=== PATIENT | female | born 1980 | race Caucasian/White ===

== ENCOUNTER → 2021-06-09 11:14 | Outpatient (CLI) | payer OTHER, SELFPAY ==
--- NOTE | ~2021-06-09 | MR_ITS ---
EXAMINATION: MR hip RT wo con DATE: 06/09/2021 12:37 INDICATION: Right hip pain TECHNIQUE: Magnetic resonance imaging (MRI) of the right hip was performed without intravenous contr ast. Sequences included full-field axial PD-weighted FS FSE and T1-weighted FSE, coronal of the pelvi s with PD-weighted FS FSE, T1-weighted FSE and T2-weighted FS FSE, small field of view of the right hip with axial PD-weighted FS FSE, sagittal PD-weighted FS FSE, coronal T2-weighted FSE and coronal P D weighted FS FSE. Additional radial T1-weighted FGR oriented orthogonal to the acetabular rim were o btained for evaluation of the labrum. COMPARISON: None FINDINGS: Bones/labrum/cartilage: Alignment is normal. No fracture, avascular necrosis or pathologic marrow replacing process. Right a cetabular labral tear with large intrasubstance ganglion cyst which expands the labrum extending from the 1:00 position anteriorly to the 10:00 position posteriorly. Articular cartilage is normal. Fluid: Symmetric physiologic amount of fluid within both hip joints. Soft tissues: Normal and symmetric muscle bulk and signal in the pelvis and visualized proximal thighs. The iliopso as, gluteal and proximal hamstring tendons are normal. Tampon within the vaginal vault. Limited evalu ation of visceral organs of the pelvis is unremarkable. No pathologically enlarged pelvic/inguinal l ymphadenopathy. IMPRESSION: 1. Tear of the right acetabular labrum with large intrasubstance ganglion cyst extending posteriorly from the 1:00 to the 10:00 position. Reviewed, dictated and finalized at location A.
--- NOTE | ~2021-06-09 | US_ITS ---
EXAMINATION: US soft tissue abdomen DATE: 06/09/2021 11:47 INDICATION: Left upper quadrant abdominal pain. Evaluate for hernia. TECHNIQUE: Multiple grayscale and Doppler ultrasound images of the abdominal wall and underlying gabriela ls in the region of pain at the left upper quadrant of the abdomen were obtained. COMPARISON: None FINDINGS: Peristalsing and shadowing bowel is seen deep to the site of maximal pain. The underlying abdominal w all appears intact with no evident ventral hernia. No abnormal masses or fluid collections identified . IMPRESSION: 1. No ventral hernia at the left retrocardiac region of concern. Reviewed, dictated and finalized at location A.
--- NOTE | ~2021-06-09 | US_ITS ---
EXAMINATION: US thyroid EXAM DATE: 06/09/2021 11:47 INDICATION: Disorder of thyroid. TECHNIQUE: Multiple grayscale and Doppler images of the thyroid were obtained (by a technologist who performed the scan) and subsequently reviewed. Individual nodules and recommendations may be reporte d in accordance with TI-RADS system as designated by the 2017 ACR White Paper TI-RADS committee. The re is no prior study for comparison. FINDINGS: Right there are lobe measures 5.0 x 1.1 x 1.3 cm, the left measuring 4.7 x 1.0 x 1.4 cm. Homogeneous thyroid echogenicity. No focal nodules identified. IMPRESSION: Unremarkable thyroid ultrasound exam. Reviewed, dictated and finalized at location A.
== END ==
PROVIDERS: PCP Emergency Medicine; Visit Provider Emergency Medicine
DX: E07.9 Disorder of thyroid, unspecified (principal); M62.08 Separation of muscle (nontraumatic), other site; M25.551 Pain in right hip; S73.101A Unspecified sprain of right hip, initial encounter; M67.451 Ganglion, right hip
CPT/HCPCS: 73721; 76536; 76705

== ENCOUNTER 2021-11-29 10:03 | Emergency (ER) | payer OTHER, SELFPAY ==
[2021-11-29 10:41] VITALS: BP 136/92; PULSE 75; RESP 16; TEMP 37.5; O2SAT 100
--- NOTE | 2021-11-29 11:18 | ED.URI ---
HPI - URI/Sore Throat General Chief Complaint: Upper Respiratory Infection Stated Complaint: Sinus,Bilateral Ear Irritation Time Seen by Provider: 11/29/21 11:05 Source: patient and RN notes reviewed Mode of arrival: ambulatory Limitations: no limitations History of Present Illness HPI Narrative: Patient presents today complaining of a 12-day history of sinus pressure, headache, chest congestion in the mornings, bilateral ear pressure. She took Mucinex for the first 5 days and has been taking Sudafed and ibuprofen for the remainder with mild relief. She was initially seen at a different urgent care who told her she had a viral sinus infection. MD elicited complaint: nasal congestion and sinus pain Related Data Allergies Allergy/AdvReac Type Severity Reaction Status Date / Time Penicillins Allergy Anaphylaxis Verified 11/29/21 10:44 Review of Systems Review of Systems: CONSTITUTIONAL: Denies body aches, fever, chills, or sweats. EYES: Denies visual changes, redness, or discharge. ENT: Denies rhinorrhea, sore throat, or otalgia.+ Congestion, sinus pressure, ear pressure CARDIOVASCULAR: Denies chest pain, palpitations, or edema. RESPIRATORY: Denies cough or dyspnea. GASTROINTESTINAL: Denies abdominal pain, nausea, vomiting, or diarrhea. GENITOURINARY: Denies dysuria or hematuria. SKIN: Denies rash, itching, or wounds. MUSCULOSKELETAL: Denies back pain, joint pain, or myalgia. NEUROLOGIC: Denies numbness, tingling, or weakness.+ Headache PSYCH: Denies depression or anxiety. PMFSH Comments At time of signature, I have reviewed and agree with nursing past medical, surgical, social and family history unless otherwise noted. Please see nursing chart for further information. There is no relevant family history pertinent to the presenting complaint Exam Narrative: GENERAL: Well-appearing, well-nourished, and in no acute distress. HEAD: Normocephalic, atraumatic. EYES: EOMI. No redness or drainage. Conjunctivae normal. ENT: Mucous membranes pink and moist. Nares congested. No rhinorrhea. TMs normal bilaterally. Throat normal. Uvula midline. Frontal and bilateral maxillary sinus tenderness, left greater than right NECK: Normal AROM. Supple. No lymphadenopathy. CHEST: No respiratory distress. Clear to auscultation. HEART: Regular rate and rhythm. No murmur appreciated. Normal peripheral pulses. EXTREMITIES: Normal range of motion. No edema. SKIN: Warm, dry, no rash. Capillary refill normal. Normal skin turgor. NEURO: No focal deficits. Alert and oriented x3. Gait steady. PSYCH: Normal affect. No signs of depression or anxiety. Course Course Level of Care: Express Care Visit Vital Signs Vital signs: Vital Signs Temperature 99.5 F 11/29/21 10:41 Pulse Rate 75 11/29/21 10:41 Respiratory Rate 16 11/29/21 10:41 Blood Pressure 136/92 H 11/29/21 10:41 Pulse Oximetry 100 11/29/21 10:41 Temperature 99.5 F 11/29/21 10:41 Pulse Rate 75 11/29/21 10:41 Respiratory Rate 16 11/29/21 10:41 Blood Pressure 136/92 H 11/29/21 10:41 Pulse Oximetry 100 11/29/21 10:41 Reviewed. Pt has been instructed to follow up with her PCP regarding her elevated blood pressure today. MDM - URI/Sore Throat Differential Diagnosis Differential diagnosis: Likely upper respiratory infection, sinusitis and viral infection Critical Care Time Critical Care Time Critical Care Time: No Discharge Plan Discharge Clinical Impression: Sinusitis Qualifiers: Sinusitis location: unspecified location Chronicity: acute Recurrence: non-recurrent Qualified Code(s): J01.90 - Acute sinusitis, unspecified Patient Disposition: Home, Self-Care Condition: Stable Instructions: Antibiotic Form, Sinusitis (ED) Additional Instructions: Please take the doxycycline as prescribed until gone. Continue Sudafed and Flonase for your symptoms. Follow-up with your doctor with any concerns. Your blood pressure was elevated above 120
== END 2021-11-29 11:25 | disposition home or self-care (01) ==
PROVIDERS: Emergency Provider Nurse Practitioner; PCP Emergency Medicine
DX: J01.90 Acute sinusitis, unspecified (principal)
CPT/HCPCS: 99213; G0463

== ENCOUNTER → 2021-12-06 02:46 | Outpatient (CLI) | payer OTHER, SELFPAY ==
[2021-12-06 21:18] LABS: SARS-CoV-2 RNA PCR Negative
== END ==
PROVIDERS: PCP Emergency Medicine; Visit Provider Emergency Medicine
DX: Z20.822 Contact with and (suspected) exposure to COVID-19 (principal)
CPT/HCPCS: C9803; U0003; U0005

== ENCOUNTER 2022-06-28 18:32 | Emergency (ER) | payer OTHER, SELFPAY ==
[2022-06-28 18:50] VITALS: BP 146/95; PULSE 80; RESP 14; TEMP 36.6; O2SAT 100
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
[2022-06-28 19:27] VITALS: BP 108/76; PULSE 80; RESP 18; O2SAT 99
== END 2022-06-28 19:28 | disposition home or self-care (01) ==
PROVIDERS: Emergency Provider Emergency Medicine; PCP Emergency Medicine
DX: Z04.1 Encounter for examination and observation following transport accident (principal)
CPT/HCPCS: 99282

== ENCOUNTER 2022-06-28 19:30 | Observation (INO) | payer OTHER, SELFPAY ==
[2022-06-28 19:45] VITALS: BP 118/61; PULSE 72
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
== END 2022-06-28 20:45 | disposition hospice, home (50) ==
PROVIDERS: Admitting Provider Obstetrics & Gynecology; PCP Emergency Medicine; Visit Provider Obstetrics & Gynecology
DX: Z04.1 Encounter for examination and observation following transport accident (principal)
CPT/HCPCS: G0378; G0379

== ENCOUNTER 2025-04-08 12:29 | Outpatient (CLI) | payer OTHER, SELFPAY ==
--- NOTE | ~2025-04-08 | MR_ITS ---
EXAMINATION: MR hip RT w con DATE: 04/08/2025 14:23 INDICATION: Right hip pain TECHNIQUE: Magnetic resonance (MR) arthrogram of the right hip was performed following intra-articula r gadolinium contrast injection and without intravenous contrast. Details of the hip joint injection have been dictated separately. Sequences included small field of view of the right hip with axial and sagittal T1-weighted FS SE and T2-weighted FS FSE and coronal T1-weighted SE and T2-weighted FS FSE . Additional T1-weighted FGRE images in a radial pattern oriented orthogonal to the acetabular rim we re obtained for evaluation of the labrum. COMPARISON: None. FINDINGS: Bones/labrum/cartilage: Alignment is normal. Low signal intensity bone island at the posterior right supra-acetabular region. Bone marrow signal is otherwise unremarkable with no fracture, avascular necrosis or pathologic radha ow replacing process. Contrast extends into pterygoid the superolateral right acetabular labrum which extends 1.6 cm AP and which begins at the chondral labral junction extending peripherally into the l abrum. Articular cartilage is otherwise normal. Fluid: Physiologic amount fluid at the left hip. No bursitis or other abnormal fluid collections. Soft tissues: Normal and symmetric muscle bulk and signal in the pelvis and visualized proximal thighs. The bilater al iliopsoas, gluteal and proximal hamstring tendons are normal. The signal intensity tampon within t he vaginal vault. Limited evaluation of visceral organs of the pelvis is unremarkable. No pathologic ally enlarged pelvic/inguinal lymphadenopathy. IMPRESSION: 1. Tear of the superolateral right acetabular labrum. Reviewed, dictated and finalized at location A.
--- NOTE | ~2025-04-08 | XR_ITS ---
EXAMINATION: XR fl inj hip RT for MR/CT DATE: 04/08/2025 13:32 INDICATION: Right hip pain TECHNIQUE: A time-out was performed to verify the patient's name, date of , and procedure to b e performed. The procedure including the risks, benefits, and alternatives was discussed with the pat ient. Risks discussed included bleeding and infection. The patient understood the risks and agreed to proceed. The skin overlying the right hip joint was prepped and draped in usual sterile fashion. A nesthetic was administered with 1% lidocaine subcutaneously. A 22 G needle was advanced under fluoro scopic guidance into the joint. Injection of 1 mL of Omnipaque 240 confirmed intra-articular positio n of the needle. Subsequently, injectate consisting of 12 mL of 2:1:1 mixture of sterile saline:Omni paque 240:1% lidocaine mixed 200:1 with 529 mg/mL Multihance gadolinium contrast was instilled with intra-articular administration confirmed with intermittent fluoroscopy. The needle was removed and th e entry site was cleaned and dressed. There were no immediate complications. Fluoroscopy exposure ti me was 0.1 minutes. The total number of images was 7. Total DAP was 0.526 mGycm^2. FINDINGS: Real-time fluoroscopy demonstrates the needle and injected contrast in the right hip joint. IMPRESSION: 1. Successful right hip joint injection of dilute gadolinium contrast mixture for subsequent MRI arth rogram which will be dictated separately. Reviewed, dictated and finalized at location A. IMPRESSION: 1. Successful right hip joint injection of dilute gadolinium contrast mixture f or subsequent MRI arthrogram which will be dictated separately.
--- OUTSIDE RECORDS SUMMARY | 2025-04-08 12:36 | XMS_ITS | Clinical Summary ---
Author Organization [facility] Care Team Providers Care Automation Control Integrator Name Role Phone Josh Sierra MD Primary Care Provider [phone] Allergies Active Allergy Reactions Criticality Noted Date Comments Penicillins Unknown,Anaphylaxis, Swel ling High 07/05/2014 Other reaction(s): Unknown Medications etonogestreL-et hinyl estradioL (NUVARING, ELURYNG) 0.12-0.015 mg/24 hr vaginal ring INSERT 1 RING VAGINALLY FOR 3 WEEKS THEN REMOVE FOR 1 WEEK Active Active Problems Problem Noted Date Diagnosed Date Normal labor 12/16/2018 Surgical History Surgery Date Site/Laterality Comments FLUORO GUIDED INJECTION HIP RIGHT 08/30/2021 Right Family History Medical History Relation Name Comments Arthritis Other Diabetes Other Heart disease Other Hypertension Other Relation Name Status Comments Other Social History Tobacco Use Types Packs/Day Years Used Date Smoking Tobacco: Never Smokeless Tobacco: Never Alcohol Use Standard Drinks/Week Comments Yes 0 (1 standard drink = 0.6 oz pur e alcohol) Personal Safety Answer Date Recorded Getting School Help Needed Not on file 01/25 Comments Unknown Sex and Gender Information Value Date Recorded Sex Assigned at Not on file Legal Sex Female 6:46 AM FULFILLMENT SPECIALIST Gender Identity Not on file Sexual Orientation Not on file 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 file Not on file Obstetrics History Last Filed Vital Signs Vital Sign Reading Time Taken Comments Blood Pressure 140/85 11/10/2021 11:56 AM FULFILLMENT SPECIALIST Pulse 96 11/10/2021 11:56 AM FULFILLMENT SPECIALIST Temperature 36.8 C (98.3 F) 12/07/2020 8:34 AM FULFILLMENT SPECIALIST Respiratory Rate - - Oxygen Saturation - - Inhaled Oxygen Concentration - - Weight 83.5 kg (184 lb) 11/10/2021 11:56 AM FULFILLMENT SPECIALIST Height 162.6 cm (5' 4 ) 11/10/2021 11:56 AM FULFILLMENT SPECIALIST Body Mass Index 31.58 11/10/2021 11:56 AM FULFILLMENT SPECIALIST Plan of Treatment Not on file Insurance [facility] CLAIMS Care Teams Automation Control Integrator Relationship Specialty Start Date End Date Josh Sierra MD [address] [place] [address] PCP - General Family Medicine 11/10/20
--- OUTSIDE RECORDS SUMMARY | 2025-04-08 12:36 | XMS_ITS | Clinical Summary ---
Author Organization [facility] Address [address] [place] [address] Care Team Providers Care Remote Sensing Analyst Name Role Phone Unavailable Primary Care Provider Unavailabl e Source Comments [facility],non-owned Affiliates and Associated Physician Practices is amultiple site organization consisting of ambulatory clinics and hospital sitesin [place], [place], [place]. This disclosure is being madepursuant to the Care Everywhere program and may not contain all information available regarding this patient. Last updated 18.[facility] Allergies Active Allergy Reactions Criticality Noted Date Comments Penicillins Anaphylaxis High 10/23/2018 Medications * Be aware that medications may not be up to date on this document. Alwaysverify current medications with the patient. No known medications Immunizations Immunization Administration Dates Next Due TDAP (7yrs+) 10/23/2018 Social History Tobacco Use Types Packs/Day Years Used Date Smoking Tobacco: Never Assessed Comments Unknown Sex and Gender Information Value Date Recorded Sex Assigned at Not on file Legal Sex Female 2:06 PM CHANNEL MAN Gender Identity Not on file Sexual Orientation Not on file Plan of Treatment Health Maintenance Due Date Last Done Comments LIPID TESTING 1982 MAMMOGRAM 1982 HIV SCREENING 1997 HEPATITIS C SCREENING 07/28/2000 HEPATITIS B VACCINE (1 of 3 - 19+ 3-dose series) 2001 COVID-19 VACCINE ( - 2023-2 5 season) 2024 DEPRESSION SCREENING 11/25/2024 INFLUENZA VACCINE (Season Ended) 2025 DTAP/TDAP/TD VACCINES (2 - T d or Tdap) 10/23/2028 10/23/2018 ZOSTER VACCINE (1 of 2) 2032 HIB VACCINE Aged Out No longer eligi ble based on patient's age to complete this topic HPV VACCINE Aged Out No longer eligi ble based on patient's age to complete this topic MENINGOCOCCAL (Group B) VACC INE SHARED DECISION-MAKING Aged Out No longer eligibl e based on patient's age to complete this topic MENINGOCOCCAL GROUPS A/C/Y/W VACCINE Aged Out No longer eligible b ased on patient's age to complete this topic PNEUMOCOCCAL VACCINE Aged Out No long er eligible based on patient's age to complete this topic Insurance [facility]
--- OUTSIDE RECORDS SUMMARY | 2025-04-08 12:36 | XMS_ITS | Encounter Summary ---
Author Organization [facility] Address [address] [place] [id number] Care Team Providers Care Ground Host/Hostess Name Role Phone Josh Sierra MD Primary Care Provider [phone] Encounter Details Date Type Department Care Team (Late st Contact Info) Description 08/29/2021 Telephone [facility] [address] [place] [id number] Grace Miguel, RT Social History Tobacco Use Types Packs/Day Years Used Date Smoking Tobacco: Never Smokeless Tobacco: Never Alcohol Use Standard Drinks/Week Comments Yes 0 (1 standard drink = 0.6 oz pur e alcohol) Comments Unknown Sex and Gender Information Value Date Recorded Sex Assigned at Not on file Legal Sex Female 6:46 AM SNOWSPORT INSTRUCTOR Gender Identity Not on file Sexual Orientation Not on file 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
--- OUTSIDE RECORDS SUMMARY | 2025-04-08 12:36 | XMS_ITS | Referral Summary ---
Author Organization [facility] Care Team Providers Care Specialty Molder Name Role Phone Josh Sierra MD Primary Care Provider [phone] Allergies Active Allergy Reactions Criticality Noted Date Comments Penicillins Unknown,Anaphylaxis, Swel ling High 07/05/2014 Other reaction(s): Unknown Medications etonogestreL-et hinyl estradioL (NUVARGENE, GATITOURYMARBELLA) 0.12-0.015 mg/24 hr vaginal ring INSERT 1 RING VAGINALLY FOR 3 WEEKS THEN REMOVE FOR 1 WEEK Active Active Problems Problem Noted Date Diagnosed Date Normal labor 12/16/2018 Social History Tobacco Use Types Packs/Day Years [...] on file Legal Sex Female 6:46 AM FORESTRY CREW CHIEF Gender Identity Not on file Sexual Orientation Not on file 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 file Not on file Last Filed Vital Signs Vital Sign Reading Time Taken Comments Blood Pressure 140/85 11/10/2021 11:56 AM FORESTRY CREW CHIEF Pulse 96 11/10/2021 11:56 AM FORESTRY CREW CHIEF Temperature 36.8 C (98.3 F) 12/07/2020 8:34 AM FORESTRY CREW CHIEF Respiratory Rate - - Oxygen Saturation - - Inhaled Oxygen Concentration - - Weight 83.5 kg (184 lb) 11/10/2021 11:56 AM FORESTRY CREW CHIEF Height 162.6 cm (5' 4 ) 11/10/2021 11:56 AM FORESTRY CREW CHIEF Body Mass Index 31.58 11/10/2021 11:56 AM FORESTRY CREW CHIEF Plan of Treatment Not on file Insurance [facility] CLAIMS Care Teams Specialty Molder Relationship Specialty Start Date End Date Josh Sierra MD [address] [place] [address] PCP - General Family Medicine 11/10/20
--- OUTSIDE RECORDS SUMMARY | 2025-04-08 12:36 | XMS_ITS | Clinical Summary ---
Author Organization [facility] Address [address] [place] [address] Care Team Providers Care Automotive Upholsterer Name Role Phone Josh Sierra MD Primary Care Provider [phone] Allergies Active Allergy Reactions Criticality Noted Date Comments Penicillins Anaphylaxis,Swelling ,Unk nown High 07/05/2014 Other reaction(s): Unknown Other reaction(s): Unknown Other reaction(s): Unknown Other reaction(s): Unknown Medications famotidine (PEPCID) 20 MG tablet 12/12/2019 Active Active Problems Problem Noted Date Diagnosed Date History of section complicating ([facility]) 10/15/2022 Multigravida of advanced mat ernal age in third trimester ([facility]) 10/15/2022 Normal labor ([facility]) 12/16/2018 Family History Medical History Relation Comments No Known Problems Brother Heart Attack Father No Known Problems Maternal Grandfather No Known Problems Maternal Grandmother Heart Attack Mother No Known Problems Paternal Grandfather Heart Attack Paternal Grandmother Hypertension Sister Relation Status Comments Brother Father Maternal Grandfather Maternal Grandmother Mother Alive Paternal Grandfather Paternal Grandmother Sister Alive Social History Tobacco Use Types Packs/Day Years Used Date Smoking Tobacco: Never Smokeless Tobacco: Never Alcohol Use Standard Drinks/Week Comments Yes 0 (1 standard drink = 0.6 oz pur e alcohol) socially Comments No Sex and Gender Information Value Date Recorded Sex Assigned at Not on file Legal Sex Female 5:28 PM CDT Gender Identity Not on file Sexual Orientation Not on file 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 on file Not on file Last Filed Vital Signs Vital Sign Reading Time Taken Comments Blood Pressure 118/76 07/15/2023 10:18 AM CDT Pulse 61 07/15/2023 10:18 AM CDT Temperature - - Respiratory Rate - - Oxygen Saturation 98% 07/15/2023 10:18 AM CDT Inhaled Oxygen Concentration - - Weight 90.8 kg (200 lb 3.2 oz) 07/15/2023 10:18 AM CDT Height 162.6 cm (5' 4 ) 07/15/2023 10:18 AM CDT Body Mass Index 34.36 07/15/2023 10:18 AM CDT Plan of Treatment Health Maintenance Due Date Last Done Comments Cervical Cancer Screening Pap Smear (Age 30 to 64) Every 3 Years 1982 Annual Physical 1985 Hepatitis C 2000 Hepatitis B Vaccines (1 of 3 - 19+ 3-dose series) 2001 Cervical Cancer Screening Pap with HPV Testing (Age 30 to 64) Every 5 Years 2012 Cervical Cancer Screening with HPV 2012 Mammogram Screening 2022 COVID-19 Vaccine ( season) 2024 05/19/2021, 04/28/2021 DTaP, Tdap and Td Vaccines (6 - Td or Tdap) 08/14/2032 08/14/2022, 10/23/2018, 10/18/2016, Additional history exists HPV Vaccines Aged Out No longer eligi ble based on patient's age to complete this topic Meningococcal B Vaccine Aged Out No l onger eligible based on patient's age to complete this topic Meningococcal Vaccine Aged Out No crista yakelin eligible based on patient's age to complete this topic Pneumococcal Vaccine: Pediatrics (0 to 5 Years) and At-Risk Patients (6 to 49 Years) Aged Out No longer eligible based on patient's age to complete this topic RSV Immunizations Under 20 Months Aged Out No longer eligible based on patient's age to complete this topic Insurance Care Teams Automotive Upholsterer Relationship Specialty Start Date End Date Josh Sierra MD [address] [place] [id number] PCP - General FAMILY PRACTICE 03/26/23
--- OUTSIDE RECORDS SUMMARY | 2025-04-08 12:36 | XMS_ITS | Continuity of Care Document ---
Author Name [facility] Organization [facility] Care Team Providers Care Package Worker Name Role Phone [facility] Unavailable Unavailable Problems Combined list of problems from Department of Defense and Veterans Affairs facilities. It does not include entries that were removed or entered in error. Problem Status Onset Date Problem Type Date of Resolution Comme nts Source headache Inactive Condition DoD Medications Combined list of outpatient medications from Department of Defense and Veterans [facility] facilities.Medications provided include 1) outpatient medications from the last 15 months, and 2) patient-reported medications. Medication Details Route Status Patient Instructions Prescription Expires Prescription Number Last Dispense Date Ordering Provider Order Date Order Qty Source GABAPENTIN (GABAPENTIN ), 100 MG, CAPSULE, ORAL, ACTAVIS PHARMA,, 500 ea. BOTTLE Active [id number] 2023 90 Pharmac y Data Transac tion Service Facilit y LIDOCAINE HCL VISCOUS (LIDOCAINE HCL), 20MG/ML, SOLUTION, MUCOUS MEM, [facility]., 100 ml BOTTLE Active [id number] 4 2023 100 Pharmac y Data Transac tion Service Facilit y PREDNISONE (prednisone ), 20 MG, TABLET, ORAL, NOVITIUM/AN I PH, 500 ea. BOTTLE Active [id number] 4 2023 15 Pharmac y Data Transac tion Service Facilit y VALACYCLOVI R (VALACYCLOV IR HCL), 1000 MG, TABLET, ORAL, AUROBINDO PHARM, 90 ea. BOTTLE Cancele d [id number] : 2023 0 Pharmac y Data Transac tion Service Facilit y VALACYCLOVI R (VALACYCLOV IR HCL), 1000 MG, TABLET, ORAL, AUROBINDO PHARM, 90 ea. BOTTLE Active [id number] 4 2023 21 Pharmac y Data Transac tion Service Facilit y Encounters Combined list of: 1) Encounters from Department of Veterans Affairs facilities going backup to the last 18 months, not all VA inpatient encounters are included; 2) Encounters from the Department of Defense facilities going backup to 280 months. Location Location Details Encounter Type Encounter Number Reason For Visit Attending Provider ADM Date DC Date Status Disposition Source [address] [place] [address] Sudhir GRISSOM ([facility] [place]Sco tt [facility] Team 3) TELE CONSULT [id number] Notes Entered by: ALICIA DAVIS 10 Apr 2013 1121 ------- ------- ------- ------- -- Multipl e symptom s/Schlo er/217. [phone] 0 cell ROOPA MCGUIRE 04/[address] [place] [address] Sudhir GRISSOM ([facility] [place]S cott [facility] Team 3) Social History Combined list of available smoking, tobacco, and other social history from Department of Defense and Veterans Affairs facilities. Social History Type Response Date Comment [facility] This section is an empty social history section. DoD
--- OUTSIDE RECORDS SUMMARY | 2025-04-08 12:36 | XMS_ITS | Data Portability ---
Author Organization [place] [facility], Main Office Address [address] [place] [address] Care Team Providers Care Ampoule Inspector Name Role Phone JONNA REYNA Primary Care Provider JONNA REYNA Referring Provider Assessment Encounter Date Assessment Date Assessment LastModified by Organization Details LastModified Time 01/06/2025 01/06/2025 44-year-old female presents for evaluation of her right ankle. She reports pain in the anterior ankle over the past 4 months. She denies having any acute injury but is active and exercises. She has pain and swelling when she is walking, currently rates her pain as 5/10. She has not had any treatments besides trying some icing. She also reports pain in the posterior hip around her SI joint. This started during her last . She has seen a chiropractor for this but has not had any other treatments. She works a desk job. Review of systems per patient questionnaire She has tenderness palpation over the anterior ankle, pain in plantar flexion. No tenderness over the medial or lateral aspects. Nonantalgic gait. She has 5/5 strength flexion extension. She has tenderness over the right SI joint. Full hip range of motion, 5 in 5 strength, negative F ABER, FADIR X-rays of the ankle were reviewed, demonstrating no acute bony abnormality She has some tendinitis over the anterior ankle. We will begin with a course of conservative management with anti-inflammator ies and physical therapy. Order for meloxicam was given. We also gave her a lace-up ankle brace. We will see her back in 6 weeks after the course of treatment for this. The meloxicam and the therapy should also help with her her hip SI joint. If she is still having symptoms next time, we can get x-rays of the pelvis, and possibly refer her for an SI joint injection. She is in agreement with plan. [email or web address] Not available 01/06/2025 12:23:13 03/03/2025 03/03/2025 HPI: 44 year old female presents for a follow-up of right hip and ankle pain. Last evaluated on Jan 06, the treatment plan was PT and meloxicam. Reports ankle pain has resolved. Regarding her hip, she states that her hip pain was deep, achy pain in the hip joint but has resolved with PT. Now, her pain is in the posterior hip and iliac crest. Pain is worse at night. Pain is nonradiating. Denies popping and catching of the hip, radiculopathy/ne uropathy sx. No recent injury. Not taking meloxicam as it did not help. She has a history of 4 births. Prior issues with this hip, had a Fluoroscopic Hip Injection which provided no relief. She was told she a small tear in the cartilage that could be repaired with surgery, but she got and did not proceed with surgery. Upon chart review, the previous MRI in 2020 demonstrated a labrum tear. Physical Exam: Right Hip General: Normal appearance. No acute distress. BMI 35.2 Inspection: No evidence of swelling, erythema, bruising or deformity. Palpation: Mild tenderness around SI joint. ROM: Full ROM Gait: Normal Special Test: Negative CORAZON/FADIR, Negative log roll, Negative SLR, Negative resisted hip abduction, Negative Gaenslen. Motor: 5/5 strength. Sensation: Sensation intact. Imaging: Xray reviewed. Mild DJD, otherwise unremarkable. Assessment & Plan: She has failed conservative management, which included physical therapy, and anti-inflammator ies. She continues to have hip pain, next step is to obtain an MRI. MRI arthrogram was ordered. Renewed PT. Would like her to continue with PT. Follow Up: After MRI results. All questions were answered. Patient verbalized understanding of treatment plan [email or web address] Not available 03/03/2025 14:41:43 Plan of Treatment Reminders Order Date Submit Date Provider Last Modified By Organization Details Last Modified Time Details Appointments None recorded. Lab None recorded. Referral physical therapist referral - continuati on of therapy for R hip. THanks 2024 025 [facility] [place] [facility], [address], [place], [address], 10:30:46 physical therapist referral - Please contact patient to schedule 2024 025 [facility] [place] [facility], [address], [place], [address], 5 11:23:46 Procedures None recorded. Surgeries None recorded. Imaging MR, arthrogram , hip - Please provide pt with disc of images to bring to f/u apt. 2024 [facility], [address] [address], [place], [address], 5 10:30:48 XR, pelvis 2024 025 [email or web address] [facility] [place], [address], [place], [address], 5 15:30:31 XR, ankle 2024 025 [email or web address] [facility] [place], [address], [place], [address], 5 10:52:23 Medication Orders Mobic 15 mg tablet 2024 025 [email or web address] [id number], [address] [facility], [place], [place], [id number], 5 10:52:23 Patient TargetsNo targets recorded. Patient InstructionsNo instructions recorded. Reason for Referral Physical Therapist Referral for Pain of right ankle joint Please contact patient to schedule Please also treat for rt SI pain Referring Physician: Viet Sanchez, Orthopedic Surgery, Encounter Date: 01/06/2025 Physical Therapist Referral for Pain of right hip joint R hip continuation of therapy for R hip. THanks Referring Physician: Edita Simpson, Orthopedic Surgery, Encounter Date: 03/03/2025 Results Created Date Observation Date Name Description Value Unit Range Abnormal Flag Note LastModifiedBy Organization Detail LastModifiedTime 01/06/20 25 XR, ankle No observ ation record ed. [email or web address] [facility] [place] [address], [place], [address], 01/06/2025 10:03:43 03/03/20 25 XR, pelvi s No observ ation record ed. [email or web address] [facility] [place] [address], [place], [address], 03/03/2025 14:41:47 Result Notes None recorded. Problems Name Problem SNOMED Code Status Onset Date Resolution Date Notes Provider Name and Address Organization Details Recorded Time Pain of right ankle joint 4864685526450 9106 Active 2024 Gabbi Ashley, [employer] null, [place] [facility] 5 10:03:38 Pain of right hip joint 4168525968034 02 Active 2024 Gabbi Ashley, [employer] null, [place] [facility] 5 10:28:14 Pain in right sacroiliac joint 9910088578577 9107 Active 2024 Gabbi Ashley, [employer] null, [place] [facility] 5 10:28:24 Problem Notes None recorded. Procedures Surgical History Date Name Laterality Status Provider Name and Address Organization Details Recorded Time 4 section completed Gabbi Ashley, [employer] [place] [facility] 01/06/2025 10:03:11 Imaging Results Imaging Date Name Status [facility]Modified by [facility] Details LastModified Time 01/06/2025 XR, ankle completed [email or web address] [facility] [place] [address], [place], [address], 01/06/2025 10:03:43 03/03/2025 XR, pelvis completed [email or web address] [facility] [place] [address], [place], [address], 03/03/2025 14:41:47 Procedure Notes None recorded. Medical Equipment None Reported. Allergies Allergen ID Allergen Name Allergen Category Reaction Reaction Severity Criticality Documentation Date Start Date Code Code System Note Provider Name and Address Organization Details Recorded Time 13391 Product containin g penicilli n (product) medicatio n anaphylax is Not available Not available 01/06/2025 99341 8001 SNOMED Gabbi Ramirez CNA [facility] 10:01:02 Medications Name Sig Start Date Stop Date Status Note LastModified by Organization Details LastModified Time Lidocaine Viscous 2 % mucosal solution SWISH/GAR GLE AND SPIT/SWAL LOW 5 ML 3 TO 4 TIMES DAILY 01/06 completed Not Available Not Available Not Available valacyclovi r 1 gram tablet TAKE 1 TABLET BY MOUTH THREE TIMES DAILY FOR 7 DAYS 01/06 completed Not Available Not Available Not Available meloxicam 15 mg tablet TAKE 1 TABLET BY MOUTH EVERY DAY active Not Available Not Available No t Available prednisone 20 mg tablet TAKE 3 TABLETS BY MOUTH EVERY DAY 01/06 completed Not Available Not Available Not Available phentermine 37.5 mg tablet TAKE 1 TABLET BY MOUTH EVERY DAY BEFORE BREAKFAST active Not Available Not Available No t Available gabapentin 100 mg capsule TAKE 1 CAPSULE BY MOUTH THREE TIMES DAILY NEEDED 01/06 completed Not Available Not Available Not Available multivitami n active Not Available Not Available Not Available EnilloRing 0.12 mg-0.015 mg/24 hr vaginal ring INSERT 1 RING VAGINALLY FOR 3 WEEKS THEN REMOVE FOR 1 WEEK active Not Available Not Available No t Available Vitals Date Recorded Body height Body mass index (BMI) Body weight Provider Name and Address Organization Details Last Updated DateTime 01/06/2025 162.56 cm 35.2 kg/m2 83028.44 g Gabbi Ramirez CNA [facility] 01/06/2025 10:00:21 Date Recorded Body height Body mass index (BMI) Body weight Pain severity - 0-10 verbal numeric rating [Score] - Reported Provider Name and Address Organization Details Last Updated DateTime 03/03/2025 162.56 cm 35.2 kg/m2 61120.44 g 4 DAISY Turk [place] [facility] 03/03/2025 10:19:55 Social History None recorded. Functional Status Question Answer Note LastModified by Organizat ion Details LastModified Time What is your level of alcohol consumption? Occasional [email or web address] Information not available 01/06/2025 Mental Status None recorded. Family History Relationship Description Onset Age of this Age Resolved Age Notes LastModified by Organization Details LastModified Time Father Heart disease [email or web address] Not available 2024 10:02:16 Sister Hypertensive disorder [email or web address] Not available 2024 10:02:31 Mother Diabetes mellitus [email or web address] Not available 2024 10:02:45 Medical History No medical history recorded. Gynecological HistoryNo gynecological history recorded. Obstetrics History GPAL:G 0 P 0 0 0 0 Past Encounters Encounter ID Performer Location Encounter Start Date Encounter Closed Date Diagnosis/Indication Diagnosis SNOMED-CT Code Diagnosis ICD10 Code Diagnosis Note [id number] Viet Sanchez MD [facility] [place] [address] [place] [address] 01/06/2025 09:45:28 01/06/2025 10:35:19 Pain of right ankle joint 9788145915 6829385 M25.773 [id number] Viet Sanchez MD [facility] [place] [place] [address] [place] [address] 03/03/2025 10:16:50 03/03/2025 11:12:27 Pain of right ankle joint 6675342372 3149020 M25.571 Pain of ri ght hip joint 9750566260 91436 M25.551 Pain in ri ght sacroiliac joint 0264907779 9463630 M53.3 Health Concerns Section Related Observation LastModified by Organization Detai ls LastModified Time None Recorded Concern Status LastModified by Organization Details LastModified Time None Recorded Advance Directives Directive None Recorded Payers Encounter Date Sequence Insurance Name Policy Number Policy Clayton Covered Member ID Clayton Member ID Guarantor Name 01/06/2025 1 [employer] () Sima Leblanc [id number] Sima Leblanc 03/03/2025 1 [facility] () Sima Leblanc [id number] Sima Leblanc OBGyn Episode No OBEpisode recorded.
--- OUTSIDE RECORDS SUMMARY | 2025-04-08 12:36 | XMS_ITS | Clinical Summary ---
Author Organization [facility] Address [address] [place] [address] Phone Care Team Providers Care Management Recruiter Name Role Phone Tee Rosario MD Primary Care Provider [phone] Allergies Active Allergy Reactions Criticality Noted Date Comments Penicillins Swelling,Anaphylaxis High 07/05/2014 Other reaction(s): Unknown Other reaction(s): Unknown Other reaction(s): Unknown Medications vit no.124/iron/folic ( VITAMIN ORAL) Take by mouth. Activ e phentermine (ADIPEX P) 37.5 mg tablet Take 1 Tablet by mouth every 24 hours. 5 Active multivit-min/iron /folic acid/K (ADULTS MULTIVITAMIN ORAL) Take by mouth. Activ e etonogestrel-Ethi nyl Estradiol 0.12-0.015 mg/24 hr Ring INSERT 1 RING VAGINALLY FOR 3 WEEKS CONSECUTIVELY, THEN REMOVE FOR 1 WEEK 3 Ring. 4 5 Active Active Problems Problem Noted Date Diagnosed Date Normal labor/TOLAC 10/20/2022 History of section complicating pregnan cy 10/15/2022 Multigravida of advanced maternal age in third t rimester 10/15/2022 Resolved Problems Problem Noted Date Diagnosed Date Resolved Date Normal labor 12/16/2018 10/15/2022 Normal labor 12/18/2016 11/12/2018 Gestational hypertension 12/17/2016 PLTCS 8/11 for breech, girl Blakelynn 07/05/2014 11/12/2018 Encounters Date Type Department Care Team Description 03/09/2025 External Device Data STL ABSTRACTION Provider, Abstract from Last 3 Months Immunizations Immunization Administration Dates Next Due (ADACEL/BOOSTRIX)(10 YR UP) TDAP VACCINE, 0.5ML, IM 08/14/2022,10/18/2016,05/09/2014 INFLUENZA VACCINE QUADRIVALE NT 6 MOS UP PF IM 08/21/2022 Influenza Seasonal Unspecifi ed Formulation IM 09/17/2016,09/04/2013 Family History Medical History Relation Name Comments Coronary Artery Disease Father Heart Disease Father Colon Cancer Maternal Grandfather Diabetes Mother Hypertension Sister Relation Name Status Comments Father Maternal Grandfather Mother Alive Sister Social History Tobacco Use Types Packs/Day Years Used Date Smoking Tobacco: Never Smokeless Tobacco: Never Tobacco Cessation:Counseling Given: Not Answered Alcohol Use Standard Drinks/Week Comments No 0 (1 standard drink = 0.6 oz pur e alcohol) Comments No Sex and Gender Information Value Date Recorded Sex Assigned at Not on file Legal Sex Female 9:20 AM CDT Gender Identity Not on file Sexual Orientation Not on file Last Filed Vital Signs Vital Sign Reading Time Taken Comments Blood Pressure 122/82 12/22/2024 3:50 PM AUTOMATIC SCREWMAKER Pulse 69 10/22/2022 7:05 AM AUTOMATIC SCREWMAKER Temperature 36.5 C (97.7 F) 10/22/2022 7:05 AM AUTOMATIC SCREWMAKER Respiratory Rate 18 10/22/2022 7:05 AM AUTOMATIC SCREWMAKER Oxygen Saturation 98% 10/21/2022 9:39 PM AUTOMATIC SCREWMAKER Inhaled Oxygen Concentration - - Weight 95.3 kg (210 lb 3.2 oz) 12/22/2024 3:50 P M AUTOMATIC SCREWMAKER Height 162.6 cm (5' 4 ) 12/22/2024 3:50 PM AUTOMATIC SCREWMAKER Body Mass Index 36.08 12/22/2024 3:50 PM AUTOMATIC SCREWMAKER Plan of Treatment Upcoming Encounters Date Type Department Care Team (Late st Contact Info) Description 12/23/2025 2:30 PM AUTOMATIC SCREWMAKER Office Visit [facility] - [id number] [phone] [place] [address] [facility] [address] [place] [address] Health Maintenance Due Date Last Done Comments Pre-Diabetes and Diabetes Screening 1982 HEPATITIS B VACCINES (1 of 3 - 19+ 3-dose series) 2001 INFLUENZA VACCINE (#1) 2024 , 09/17/2016, 09/04/2013 BREAST CANCER SCREENING 12/25/2024 12/25/2023 PAP SMEAR 12/03/2025 12/03/2022, 11/26, 05/06/2018 (Previously completed) CERVICAL CANCER SCREENING 12/03/2027 HPV/Cotest (21-29) 12/03/2027 12/03/2022, 12/17/2019 HPV/Cotest (30-65) 12/03/2027 12/03/2022, 12/17/2019 DTAP/TDAP/TD VACCINES (5 - Td or Tdap) 08/14/2032 08/14/2022, 10/23/2018, 10/18/2016, Additional history exists HPV VACCINES Aged Out No longer eligi ble based on patient's age to complete this topic Medical Devices Implanted Type Area Undergraduate Advisor Device Identifier Shelf Expiration Date Model / Serial / Lot Barrier Seprafilm 5x6in [id number] ([id number]) - [id number] Implanted:Qty : 1 on 07/05/2014 by Loly Shelton DO at [facility] [employer] 06/25/2016 [id number] / / [id number] Procedures Procedure Name Priority Date/Time Associated Diagnosis Comments MAMMO 3D TERE SCREEN BILAT W OR WO CAD Routine 12/25/2023 3:14 PM AUTOMATIC SCREWMAKER Breast cancer screening by mammogram CERV/VAG CYTO AGE BASED SCREEN PAP Routine 12/03/2022 4:02 PM AUTOMATIC SCREWMAKER Well woman exam from Last 3 Months or Most Recently Relevant to Health Maintenance Results * MAMMO 3D TERE SCREEN BILAT W OR WO CAD (12/25/2023 3:14 PM AUTOMATIC SCREWMAKER) Anatomical Region Laterality Modality Breast Bilateral Mammography 12/25/2023 3:15 PM AUTOMATIC SCREWMAKER Impressions 12/25/2023 6:10 PM AUTOMATIC SCREWMAKER IMPRESSION: No mammographic evidence of malignancy. RECOMMENDATIONS: Routine screening mammogram in one year. DICTATION LOCATION: [facility] Narrative 12/25/2023 6:10 PM AUTOMATIC SCREWMAKER BILATERAL FULL-FIELD DIGITAL SCREENING MAMMOGRAM WITH CAD WITH 3D TOMOSYNTHESIS DATE: 12/25/2023 3:14 PM HISTORY: Routine screening. TECHNIQUE: Full-field digital craniocaudal and mediolateral oblique projections of both breasts were obtained. Low-dose full-field digital breast tomosynthesis examination was performed with 2D and 3D acquisitions. Examination is read in conjunction with computer aided detection. COMPARISON: Baseline exam BREAST COMPOSITION: There are scattered areas of fibroglandular density. FINDINGS: No suspicious mass, suspicious microcalcifications, or architectural distortion in either breast is identified. The computer aided diagnosis detects no significant abnormality. OVERALL FINAL ASSESSMENT: BI-RADS CATEGORY 1 : Negative Procedure Note Edson Craig MD - 12/25/2023 BILATERAL FULL-FIELD DIGITAL SCREENING MAMMOGRAM WITH CAD WITH 3D TOMOSYNTHESIS DATE: 12/25/2023 3:14 PM HISTORY: Routine screening. TECHNIQUE: Full-field digital craniocaudal and mediolateral oblique projections of both breasts were obtained. Low-dose full-field digital breast tomosynthesis examination was performed with 2D and 3D acquisitions. Examination is read in conjunction with computer aided detection. COMPARISON: Baseline exam BREAST COMPOSITION: There are scattered areas of fibroglandular density. FINDINGS: No suspicious mass, suspicious microcalcifications, or architectural distortion in either breast is identified. The computer aided diagnosis detects no significant abnormality. OVERALL FINAL ASSESSMENT: BI-RADS CATEGORY 1 : Negative IMPRESSION: No mammographic evidence of malignancy. RECOMMENDATIONS: Routine screening mammogram in one year. DICTATION LOCATION: [facility] us Loly Shelton DO MAMMO ORDERABLES Final Resu lt * CERV/VAG CYTO AGE BASED SCREEN PAP (12/03/2022 4:02 PM AUTOMATIC SCREWMAKER) COMMENT (PAP): [facility] [place] Comment: This order for age-based cervical cancer and STI screening follows ACOG guidelines(PB 168, 140, YHG820). See individual assays for performing site location. CLINICAL INFORMATION [facility] [place] Comment:None given LAST MENSTRUAL PERIOD [facility] [place] Comment:NONE GIVEN PREV PAP: [facility] [place] Comment:NONE GIVEN PREV BX: [facility] [place] Comment:NONE GIVEN SOURCE [facility] [place] Comment:Endocervix ADEQUACY: [facility] [place] Comment: Satisfactory for evaluation. Endocervical/transformation zone component present. Age and/or menstrual status not provided PAP INTERP [facility] [place] Comment:Negative for intraep ithelial lesion or malignancy. COMMENT (PAP TEST) [facility] [place] Comment: This Pap test has been evaluated with computer assisted technology. AUTOMATIC FOLDER SEAMER: [facility] [place] Comment: MEF, CT(ASCP) CT screening location: [place] [address] [place] [address] EXPLANATORY NOTE [facility] [place] Comment: EXPLANATORY NOTE: The Pap is a screening test for cervical cancer. It is not a diagnostic test and is subject to false negative and false positive results. It is most reliable when a satisfactory sample, regularly obtained, is submitted with relevant clinical findings and history, and when the Pap result is evaluated along with historic and current clinical information. HPV E6/E7 Not Detected Not Detected [facility] [place] Comment: Methodology: Front Office Clerk-Mediated Amplification This assay detects E6/E7 viral messenger RNA (mRNA) from 14 high-risk HPV types (16,18,31,33,35,39,45,51,52,56,58,59,66,68). Cervical sources are required for HPV testing. If a vaginal source from a patient who has had a total hysterectomy with removal of cervix was submitted, please contact the testing laboratory for alternative testing options. For additional information, please refer to http://[email or web address]/YBQ784c0 (This link if provided for information/ educational purposes only.) Test Performed at: [facility] [address] [place] [address] Rickie Hobbs D.O., MPH SL Genital SWAB OF ENDOCERVIX / Unknown 12/03/2022 4:02 PM AUTOMATIC SCREWMAKER 12/03/2022 10:09 PM AUTOMATIC SCREWMAKER Loly Shelton DO PATHOLOGY/CYTOLOGY ORDERABL ES Final Result [facility] [phone] [facility] [address] [phone] from Last 3 Months or Most Recently Relevant to Health Maintenance Insurance [facility] Address: [facility] [place] [address] [employer] (INTERNAL) [facility] Internal Plans Advance Directives For more information, please contact: [phone] * Full Code (Latest Code Status on File) Date Activated Date Inactivated Comments 10/20/2022 12:11 PM 10/22/2022 1:47 PM * Full Code Date Activated Date Inactivated Comments 10/20/2022 5:36 AM 10/20/2022 12:11 PM * Full Code Date Activated Date Inactivated Comments 12/16/2018 11:02 AM 12/18/2018 1:01 PM * Full Code Date Activated Date Inactivated Comments 12/16/2018 6:02 AM 12/16/2018 11:02 AM * Full Code Date Activated Date Inactivated Comments 12/16/2018 6:01 AM 12/16/2018 6:02 AM Care Teams Management Recruiter Relationship Specialty Start Date End Date Tee Rosario MD [address] [place] [id number] PCP - General 07/31/18
== END 2025-04-08 12:30 | disposition home or self-care (01) ==
PROVIDERS: PCP Emergency Medicine; Visit Provider Orthopaedic Surgery
DX: S73.191A Other sprain of right hip, initial encounter (principal)
CPT/HCPCS: 20610; 73722; 77002; Q9966